=== PATIENT | male | born 1995 | race Two or more races ===

== ENCOUNTER 2025-09-29 19:11 | Observation (INO) ==
--- NOTE | 2025-09-29 19:23 | Emergency Department Note ---
History of Present Illness General Chief complaint: Stroke Alert Stated complaint: stroke symptoms Time Seen by Provider: 09/29/25 19:13 Source: EMS History of Present Illness Provider complaint: Stroke symptoms 30-year-old male presents emergency department for stroke symptoms. Reportedly from EMS at 5:30 PM the patient began having difficulty speaking and weakness in his right arm. Patient reports history of a stroke. EMS states his symptoms have improved since being in the ambulance. Home Medications Medication Instructions Recorded Confirmed Type aspirin 81 mg PO DAILY 09/29/25 09/29/25 History cholecalciferol (vitamin D3) 1 tab PO DAILY 09/29/25 09/29/25 History hydrochlorothiazide 25 mg tablet 25 mg PO DAILY 09/29/25 09/29/25 History lisinopril 20 mg tablet 20 mg PO DAILY 09/29/25 09/29/25 History melatonin 5 mg PO DAILY 09/29/25 09/29/25 History metformin 500 mg tablet,extended 1,000 mg PO HS 09/29/25 09/29/25 History release 24 hr sertraline 50 mg tablet 75 mg PO DAILY 09/29/25 09/29/25 History tirzepatide (weight loss) 5 mg/0.5 5 mg subcut WK 09/29/25 09/29/25 History mL subcutaneous pen injector (Zepbound) vitamin B complex 1 tab PO DAILY 09/29/25 09/29/25 History Allergies Allergy/AdvReac Type Severity Reaction Status Date / Time No Known Allergies Allergy Unverified 09/29/25 20:21 Past Med/Surg History Problem List (Updated 09/29/25 @ 22:24 by Jackson Ch MD) Stroke-like symptoms (Acute) Medical History (Updated 09/29/25 @ 22:24 by Jackson Ch MD) HLD (hyperlipidemia) CVA (cerebral vascular accident) HTN (hypertension) Social History Smoking Status: Never smoker Preferred Language: Slovak Feels Safe at Home: Yes Physical Exam Vital Signs Vital Signs - 24 hr 09/29/25 19:14 09/29/25 19:14 09/29/25 19:23 Temperature 36.8 C Temperature Source Oral Pulse Rate 64 66 Pulse Rate [Apical] 64 Pulse Rhythm Regular Pulse Rhythm [Apical] Regular Pulse Strength Normal Pulse Strength [Apical] Normal Respiratory Rate 18 18 Respiratory Effort / Characteristics Non-Labored Spontaneous Non-Labored Spontaneous Respiratory Depth Normal Normal Respiratory Pattern Regular Regular Blood Pressure 171/86 H Blood Pressure [Right Arm] 171/86 H Blood Pressure Mean 114 Blood Pressure Mean [Right Arm] 114 Blood Pressure Position Semi-fowlers Blood Pressure Position [Right Arm] Semi-fowlers Pulse Oximetry 97 97 Oxygen Delivery Method Room Air Room Air Sepsis Recent Fever Within 48 Hours Yes Sepsis New/Unexplained Change in Mental Status N/A Sepsis Action Taken by Nursing No Action Required 09/29/25 19:28 09/29/25 19:35 09/29/25 19:58 Temperature Temperature Source Pulse Rate Pulse Rate [Apical] 76 74 Pulse Rhythm Pulse Rhythm [Apical] Regular Regular Pulse Strength Pulse Strength [Apical] Normal Normal Respiratory Rate 18 18 Respiratory Effort / Characteristics Non-Labored Spontaneous Non-Labored Spontaneous Respiratory Depth Normal Normal Respiratory Pattern Regular Regular Blood Pressure Blood Pressure [Right Arm] 159/86 H 146/81 H Blood Pressure Mean Blood Pressure Mean [Right Arm] 110 102 Blood Pressure Position Blood Pressure Position [Right Arm] Semi-fowlers Semi-fowlers Pulse Oximetry 96 97 95 Oxygen Delivery Method Room Air Room Air Room Air Sepsis Recent Fever Within 48 Hours Sepsis New/Unexplained Change in Mental Status Sepsis Action Taken by Nursing 09/29/25 20:13 09/29/25 21:00 Temperature Temperature Source Pulse Rate Pulse Rate [Apical] 74 65 Pulse Rhythm Pulse Rhythm [Apical] Regular Regular Pulse Strength Pulse Strength [Apical] Normal Normal Respiratory Rate 18 17 Respiratory Effort / Characteristics Non-Labored Spontaneous Non-Labored Spontaneous Respiratory Depth Normal Normal Respiratory Pattern Regular Regular Blood Pressure Blood Pressure [Right Arm] 139/78 158/80 H Blood Pressure Mean Blood Pressure Mean [Right Arm] 98 106 Blood Pressure Position Blood Pressure Position [Right Arm] Semi-fowlers Lying Pulse Oximetry 96 96 Oxygen Delivery Method Room Air Room Air Sepsis Recent Fever Within 48 Hours Sepsis New/Unexplained Change in Mental Status Sepsis Action Taken by Nursing Physical Exam GENERAL: oriented to person, place, and time. appears well-developed and well- nourished. HENT: Exam performed. - Head: Normocephalic and atraumatic. EYES: Conjunctivae and EOM are normal. Right eye exhibits no discharge. Left eye exhibits no discharge. No scleral icterus. NECK: Normal range of motion. Neck supple. No JVD present. CV: Normal rate, regular rhythm, normal heart sounds and intact distal pulses. There is no peripheral edema. Palpable radial pulses bue. PULM/CHEST: Effort normal and breath sounds normal. No respiratory distress. No stridor. no wheezes. no rales. ABD: The abdomen is soft and morbidly obese. There is no tenderness. NEURO: NIHSS: 2 (9:1, 10:1) SKIN: Skin is warm and dry. He is not diaphoretic. PSYCH: normal mood and affect. Behavior is normal. Judgment and thought content normal. Course Course 1902: Code stroke called from the field. 1912:The patient was evaluated in CT. 1916: CT of the head viewed by me shows no ICH. 1924: On reassessment patient's dysarthria and aphasia seems to have improved. 1930: Radiology called and stated CT of the head and CTA of the head was negative.Spoke with Dr. Kenney Santana teleashanti will evaluate the patient. 1949: Patient was eval by Dr. Kenney Santana teleashanti. He states the patient needs no TNKase but patient needs an MRI. Will admit the patient to the medicine service for MRI and further stroke workup. Administered Medications Discontinued Medications Ioversol (Optiray 320 125ml) 115 ml IV ONCE ONE Stop: 09/29/25 19:23 Last Admin: 09/29/25 19:26 Dose: 115 ml Documented By: DANIKA Medical Decision Making Laboratory Data Attestation: I reviewed the patient's lab results. 09/29/25 19:22 09/29/25 19:22 Lab Results 09/29/25 09/29/25 09/29/25 Range/Units 19:22 19:29 20:40 WBC 5.16 (4.8-10.8) K/ul RBC 4.77 (4.70-6.10) M/uL Hgb 14.3 (14.0-18.0) g/dL Hct 40.5 L (42.0-52.0) % MCV 84.9 (80.0-100.0) fL MCH 30.0 (25.0-34.0) pg MCHC 35.3 (32.0-36.0) g/dL RDW Std Deviation 39.8 (36.4-46.3) fL RDW Coeff of Carla 13.0 (11.5-14.5) % Plt Count 198 (130-400) K/uL MPV 10.1 (9.4-12.4) fL Immature Gran % (Auto) 1.4 % Neut % (Auto) 55.2 % Lymph % (Auto) 30.8 % [place] % (Auto) 9.1 % Eos % (Auto) 3.1 % Baso % (Auto) 0.4 % Neut # (Auto) 2.85 (1.40-6.50) K/uL Lymph # (Auto) 1.59 (1.20-3.40) K/uL [place] # (Auto) 0.47 (0.11-0.59) K/uL Eos # (Auto) 0.16 (0.00-0.50) K/uL Baso # (Auto) 0.02 (0.00-0.20) K/uL Immature Gran # (Auto) 0.07 (0.01-0.20) K/uL PT 11.0 (9.0-12.0) Seconds INR 1.0 (0.9-1.1) APTT 25 (21-31) Seconds PTT Ratio 0.9 Sodium 133 L (136-145) mmol/L Potassium 4.2 (3.5-5.1) mmol/L Chloride 98 (98-107) mmol/L Carbon Dioxide 27 (21-32) mmol/L Anion Gap 8 (3-11) BUN 13 (6-23) mg/dl Creatinine 0.78 (0.6-1.4) mg/dl Est Cr Clr Drug Dosing 234.7 ml/min eGFR 124.57 BUN/Creatinine Ratio 16.7 (10-20) Glucose 118 H (70-99(Fasting)) mg/dl POC Glucose 118 H (70-99) mg/dl Calcium 9.4 (8.6-10.3) mg/dl Magnesium 1.7 (1.7-2.4) mg/dl Total Bilirubin 0.7 (0.2-1.0) mg/dl AST 56 H (13-39) U/L ALT 68 H (7-52) U/L Alkaline Phosphatase 44 (34-104) U/L Troponin I High Sens 4.1 (0-20) pg/ml Total Protein 7.0 (6.0-8.3) gm/dl Albumin 4.1 (3.4-5.0) gm/dl Globulin 2.9 (2.5-4.0) gm/dl Albumin/Globulin Ratio 1.4 (0.9-2) Urine Color Yellow Urine Appearance Clear (Clear) Urine pH 5.0 (4.5-7.5) Ur Specific [place] 1.025 (1.000-1.030) Urine Protein Negative (Negative) Urine Glucose (UA) Negative (Negative) Urine Ketones Negative (Negative) Urine Blood Negative (Negative) Urine Nitrite Negative (Negative) Urine Bilirubin Negative (Negative) Urine Urobilinogen Negative (Negative) Ur Leukocyte Esterase Negative (Negative) Urine Comment Urine Opiates Screen Neg (Neg) Ur Methadone, Qual Neg (Neg) Urine Fentanyl Screen Neg (Neg) Urine Barbiturates Neg (Neg) Ur Phencyclidine (PCP) Neg (Neg) U Amphetamin/Meth Scrn Neg (Neg) MDMA (Ecstasy) Screen Neg (Neg) U Benzodiazepines Scrn Neg (Neg) Ur Cocaine Metabolite Neg (Neg) U Marijuana (THC) Screen Neg (Neg) Blood Type A Positive Antibody Screen NEGATIVE Imaging Data My Impression: CT of the head viewed by me shows no ICH. Radiologist's Impression: Chest X-Ray 09/29/25 19:13 COMPARISON: None FINDINGS: HEART: Mild cardiomegaly. LUNGS: Right CP angle not included in the study. No focal consolidation, pleural effusion, or vascular congestion. MEEDIASTINUM: Unremarkable. BONES: Intact. OTHER: Unremarkable. IMPRESSION: Mild cardiomegaly. Right CP angle not included the study. Electronically signed by Dipak Gonzalez 09-29-2025 7:[address] 09/29/25 19:13 TECHNIQUE: Contiguous axial images were obtained through the brain. Coronal reconstructions were performed from the raw data. Dose reduction according to patient size and/or automated exposure control techniques have been utilized for this exam. FINDINGS: The bony calvarium is intact. There is no hydrocephalus, midline shift, or extra-axial fluid collections. There is no mass effect, hemorrhage, or edema. No significant white matter abnormalities. IMPRESSION: No acute intracranial pathology. Findings personally discussed with the referring provider at 7:31 PM. Electronically signed by Dipak Gonzalez 09-29-2025 7:33 PM Head CTA 09/29/25 19:13 INDICATION: Right arm weakness COMPARISON: None TECHNIQUE: CT Axial images were obtained. CTA was performed through the [place] [facility] [place]. Multiplanar reconstructions were performed. Dose reduction according to patient size and/or automated exposure control techniques have been utilized for this exam. MIP (Maximum Intensity Pixel) images were utilized. This study was analyzed using artificial intelligence software for Large Vessel Occlusive detection. FINDINGS: CT examination of the head demonstrates the ventricles to be normal in size and configuration. There is no acute hemorrhage, hydrocephalus, midline shift, or extra-axial fluid collections. The visualized intracranial arteries are normal in caliber. There is no evidence of significant stenosis or aneurysm formation. There are no vascular malformations. The posterior circulation is unremarkable. IMPRESSION: No large vessel cutoff. Findings personally discussed with the referring provider at 7:31 PM. Electronically signed by Dipak Gonzalez 09-29-2025 7:33 PM Neck CTA 09/29/25 19:13 INDICATION: Right arm weakness COMPARISON: None TECHNIQUE: CT exam of the neck was performed. Multiplanar reconstructions were obtained. Dose reduction according to patient size and/or automated exposure control techniques have been utilized for this exam. MIP (Maximum Intensity Pixel) images were utilized. FINDINGS: The aortic arch is normal in caliber. The origin of the neck vessels are patent. The right common carotid artery is patent. The right internal carotid artery is patent. The right external carotid artery is patent. The left common carotid artery is patent. The left internal carotid artery is patent. The left external carotid artery is patent. The vertebral arteries are patent. No cystic or solid masses. Small bilateral cervical chain lymph nodes, likely reactive. Symmetric appearance of the parotid and submandibular glands. The thyroid gland is normal in size. The lung apices are clear. Cervical spine is intact. Bilateral maxillary and ethmoid sinusitis changes. IMPRESSION: Right carotid system: No significant carotid stenosis Left carotid system: No significant carotid stenosis Patent vertebral arteries. Electronically signed by Dipak Gonzalez 09-29-2025 7:37 PM ECG Data Attestation: I personally reviewed and interpreted this ECG as follows: Rate (beats per minute): 65 Rhythm: + normal sinus ECG Intervals/blocks: + Normal QRS, + Normal DE and + Normal QT-c ECG ST segments: + Normal ST segments [facility] Narrative 1903: Code stroke called from the field. 1913:The patient was evaluated in CT. 1916: CT of the head viewed by me shows no ICH. 1924: On reassessment patient's dysarthria and aphasia seems to have improved. 1930: Radiology called and stated CT of the head and CTA of the head was negative.Spoke with Dr. Kenney Santana telestroke will evaluate the patient. 1949: Patient was eval by Dr. Kenney Santana teleashanti. He states the patient needs no TNKase but patient needs an MRI. Will admit the patient to the medicine service for MRI and further stroke workup. Impression & Plan Stroke-like symptoms Discharge Plan Visit Data Chief Complaint: Stroke Alert Stated Complaint: stroke symptoms ED Provider: Jackson Ch Discharge Problem: Stroke-like symptoms Patient Disposition: Admitted As Inpatient Condition: Fair Discharge Instructions Interventions: ED Discharge Assessment Last Done: 09/29/25 21:53
[2025-09-29] MEDS: OPTIRAY 320 125ml IV ONE (19:26)
[2025-09-29 19:39] LABS: Hematocrit (blood only) 40.5 % (42.0-52.0); Hemoglobin 14.3 g/dL (14.0-18.0); Immature Granulocytes # (auto) 0.07 K/uL (0.01-0.20); Immature Granulocytes % (auto) 1.4 %; Mean Corpuscular Hemoglobin 30.0 pg (25.0-34.0); Mean Corpuscular Volume 84.9 fL (80.0-100.0); Platelet Count 198 K/uL (130-400); RDW Standard Deviation 39.8 fL (36.4-46.3); Red Blood Count 4.77 M/uL (4.70-6.10); White Blood Count 5.16 K/ul (4.8-10.8)
--- NOTE | 2025-09-29 19:39 | CT Scan Report ---
INDICATION: Right arm weakness COMPARISON: None TECHNIQUE: CT exam of the neck was performed. Multiplanar reconstructions were obtained. Dose reduction according to patient size and/or automated exposure control techniques have been utilized for this exam. MIP (Maximum Intensity Pixel) images were utilized. FINDINGS: The aortic arch is normal in caliber. The origin of the neck vessels are patent. The right common carotid artery is patent. The right internal carotid artery is patent. The right external carotid artery is patent. The left common carotid artery is patent. The left internal carotid artery is patent. The left external carotid artery is patent. The vertebral arteries are patent. No cystic or solid masses. Small bilateral cervical chain lymph nodes, likely reactive. Symmetric appearance of the parotid and submandibular glands. The thyroid gland is normal in size. The lung apices are clear. Cervical spine is intact. Bilateral maxillary and ethmoid sinusitis changes. IMPRESSION: Right carotid system: No significant carotid stenosis Left carotid system: No significant carotid stenosis Patent vertebral arteries. Electronically signed by Dipak Gonzalez 09-29-2025 7:37 PM
--- NOTE | 2025-09-29 19:39 | XRay Report ---
COMPARISON: None FINDINGS: HEART: Mild cardiomegaly. LUNGS: Right CP angle not included in the study. No focal consolidation, pleural effusion, or vascular congestion. MEEDIASTINUM: Unremarkable. BONES: Intact. OTHER: Unremarkable. IMPRESSION: Mild cardiomegaly. Right CP angle not included the study. Electronically signed by Dipak Gonzalez 09-29-2025 7:38 PM
--- NOTE | 2025-09-29 19:39 | CT Scan Report ---
TECHNIQUE: Contiguous axial images were obtained through the brain. Coronal reconstructions were performed from the raw data. Dose reduction according to patient size and/or automated exposure control techniques have been utilized for this exam. FINDINGS: The bony calvarium is intact. There is no hydrocephalus, midline shift, or extra-axial fluid collections. There is no mass effect, hemorrhage, or edema. No significant white matter abnormalities. IMPRESSION: No acute intracranial pathology. Findings personally discussed with the referring provider at 7:31 PM. Electronically signed by Dipak Gonzalez 09-29-2025 7:33 PM
--- NOTE | 2025-09-29 19:39 | CT Scan Report ---
INDICATION: Right arm weakness COMPARISON: None TECHNIQUE: CT Axial images were obtained. CTA was performed through the [place] [employer] [place]. Multiplanar reconstructions were performed. Dose reduction according to patient size and/or automated exposure control techniques have been utilized for this exam. MIP (Maximum Intensity Pixel) images were utilized. This study was analyzed using artificial intelligence software for Large Vessel Occlusive detection. FINDINGS: CT examination of the head demonstrates the ventricles to be normal in size and configuration. There is no acute hemorrhage, hydrocephalus, midline shift, or extra-axial fluid collections. The visualized intracranial arteries are normal in caliber. There is no evidence of significant stenosis or aneurysm formation. There are no vascular malformations. The posterior circulation is unremarkable. IMPRESSION: No large vessel cutoff. Findings personally discussed with the referring provider at 7:31 PM. Electronically signed by Dipak Gonzalez 09-29-2025 7:33 PM
[2025-09-29 19:55] LABS: Alanine Aminotransferase 68.0 U/L (7-52); Albumin Globulin Ratio 1.4 (0.9-2); Albumin Level 4.1 gm/dl (3.4-5.0); Alkaline Phosphatase 44.0 U/L (34-104); Anion Gap 8.0 (3-11); Bilirubin,Total 0.7 mg/dl (0.2-1.0); Blood Urea Nitrogen 13.0 mg/dl (6-23); Calcium 9.4 mg/dl (8.6-10.3); Carbon Dioxide 27.0 mmol/L (21-32); Chloride 98.0 mmol/L (98-107); Creatinine Clr Calc Pharmacy 234.7 ml/min; Globulin 2.9 gm/dl (2.5-4.0); Glucose 118.0 mg/dl (70-99(Fasting)); Magnesium 1.7 mg/dl (1.7-2.4); Potassium 4.2 mmol/L (3.5-5.1); Sodium 133.0 mmol/L (136-145); Total Protein 7.0 gm/dl (6.0-8.3)
[2025-09-29 20:25] LABS: INR 1.0 (0.9-1.1); Partial Thromboplastin Time 25 Seconds (21-31); Prothrombin Time 11.0 Seconds (9.0-12.0)
[2025-09-29 20:57] LABS: Appearance Urine Clear (Clear); Glucose Urine UA Negative (Negative)
--- NOTE | 2025-09-29 21:35 | History & Physical Report ---
Date of Service September 29, 2025 Assessment & Plan (1) Stroke-like symptoms: Plan: 30-year-old male with past medical history significant for hypertension, diabetes, depression, morbid obesity, obstructive sleep apnea presents for strokelike symptoms. Around 5:30 PM today patient noticed slurred speech and also weakness in the right side and EMS was called. Symptoms lasted about 1 hour. Patient was stroke alert. Currently patient is mostly back to normal. Patient says he had similar kind of symptoms 4 years ago and at that time workup was negative and was told it was stress related. Patient is having ongoing stress for last 1 month. Currently denies any headache. Earlier had blurred vision. Currently vision is okay. No earaches currently. No runny nose or sore throat. No cough. No difficulty swallowing. Denies any chest pain or shortness of breath. No nausea. No abdominal pain. Normal bowel and bladder movements. Resting comfortably and hemodynamics are okay currently. Strokelike symptoms Transient dysarthria and right sided weakness Currently still has some decreased sensation in the right side CT head, CTA head and neck unremarkable Will do full stroke workup with MRI, echo Will check HbA1c and lipid profile Neurochecks PT OT Telemetry Neurology consult for further recommendations Continue home aspirin Hypertension Continue home lisinopril hydrochlorothiazide Will monitor Diabetes Hold home medications Sliding scale Will monitor Depression On Zoloft Morbid obesity Counseling Obstructive sleep apnea CPAP nightly DVT prophylaxis SCDs Disposition Telemetry Full code. History of Present Illness Chief Complaint: Strokelike symptoms Primary Care Provider: NO PCP 30-year-old male with past medical history significant for hypertension, diabetes, depression, morbid obesity, obstructive sleep apnea presents for strokelike symptoms. Around 5:30 PM today patient noticed slurred speech and also weakness in the right side and EMS was called. Symptoms lasted about 1 hour. Patient was stroke alert. Currently patient is mostly back to normal. Patient says he had similar kind of symptoms 4 years ago and at that time workup was negative and was told it was stress related. Patient is having ongoing stress for last 1 month. Currently denies any headache. Earlier had blurred vision. Currently vision is okay. No earaches currently. No runny nose or sore throat. No cough. No difficulty swallowing. Denies any chest pain or shortness of breath. No nausea. No abdominal pain. Normal bowel and bladder movements. Resting comfortably and hemodynamics are okay currently. Past medical history. As mentioned above. Past surgical history. Left knee surgery. Social history. Denies smoking. Denies alcohol use. Denies drug use. Family history. Significant for diabetes. Brother has heart problems. Allergies Allergy/AdvReac Type Severity Reaction Status Date / Time No Known Allergies Allergy Unverified 09/29/25 20:21 Home Medications Medication Instructions Recorded Confirmed Type aspirin 81 mg PO DAILY 09/29/25 09/29/25 History cholecalciferol (vitamin D3) 1 tab PO DAILY 09/29/25 09/29/25 History hydrochlorothiazide 25 mg tablet 25 mg PO DAILY 09/29/25 09/29/25 History lisinopril 20 mg tablet 20 mg PO DAILY 09/29/25 09/29/25 History melatonin 5 mg PO DAILY 09/29/25 09/29/25 History metformin 500 mg tablet,extended 1,000 mg PO HS 09/29/25 09/29/25 History release 24 hr sertraline 50 mg tablet 75 mg PO DAILY 09/29/25 09/29/25 History tirzepatide (weight loss) 5 mg/0.5 5 mg subcut WK 09/29/25 09/29/25 History mL subcutaneous pen injector (Zepbound) vitamin B complex 1 tab PO DAILY 09/29/25 09/29/25 History Past Med/Surg History Problem List (Updated 09/29/25 @ 22:24 by Jackson Ch MD) Stroke-like symptoms (Acute) Medical History (Updated 09/29/25 @ 22:24 by Jackson Ch MD) HLD (hyperlipidemia) CVA (cerebral vascular accident) HTN (hypertension) Social History Smoking Status: Never smoker Hx Alcohol Use: No Hx Substance Use: No Preferred Language: Portuguese Communication Ability: Effective Principal Consultant Required: No Beliefs That Will Affect Care: None Current Living Situation: Other Current Living Situation Comment: room mate, Neymar Other Information That Helps Us Care for You: No Feels Safe at Home: Yes Safety Concerns: Feels Safe At This Time Assistive Devices: CPAP and Glasses Review of Systems Review of Systems: All systems reviewed & are unremarkable except as noted in HPI & below Physical Exam Physical Exam: General- Not in distress Head- atraumatic Eyes- EOMI. ENT- oropharynx clear Neck- supple, no JVD. Lungs- clear to auscultation no wheezing or crackles Heart- regular rate and rhythm; no murmur, no gallop. Abdomen- normal bowel sounds, soft, nontender, no distension Extremities- no pretibial edema, no erythema seen Neuro- alert, oriented EOMI; no facial palsy; no dysarthria; motor 5/5 bilaterally; no pronator drift, coordination of movements normal, mild decreased sensations on right side, position sense intact Results & Data Results & Data Vital Signs (Past 12 Hours) Vital Signs Temp Pulse Pulse Resp BP BP Pulse Ox 09/29/25 21:00 65 17 158/80 H 96 09/29/25 20:13 74 18 139/78 96 09/29/25 19:58 74 18 146/81 H 95 09/29/25 19:35 97 09/29/25 19:28 76 18 159/86 H 96 09/29/25 19:23 66 09/29/25 19:14 36.8 C 64 18 171/86 H 97 09/29/25 19:14 64 18 171/86 H 97 O2 Del Method 09/29/25 21:00 Room Air 09/29/25 20:13 Room Air 09/29/25 19:58 Room Air 09/29/25 19:35 Room Air 09/29/25 19:28 Room Air 09/29/25 19:23 09/29/25 19:14 Room Air 09/29/25 19:14 Room Air Diagnostic Findings Laboratory Results WBC 5.16 K/ul (4.8-10.8) 09/29/25 19:22 RBC 4.77 M/uL (4.70-6.10) 09/29/25 19:22 Hgb 14.3 g/dL (14.0-18.0) 09/29/25 19:22 Hct 40.5 % (42.0-52.0) L 09/29/25 19:22 MCV 84.9 fL (80.0-100.0) 09/29/25 19:22 MCH 30.0 pg (25.0-34.0) 09/29/25 19:22 MCHC 35.3 g/dL (32.0-36.0) 09/29/25 19:22 RDW Std Deviation 39.8 fL (36.4-46.3) 09/29/25 19:22 RDW Coeff of Carla 13.0 % (11.5-14.5) 09/29/25 19: Plt Count 198 K/uL (130-400) 09/29/25 19: MPV 10.1 fL (9.4-12.4) 09/29/25 19: Immature Gran % (Auto) 1.4 % 09/29/25: Neut % (Auto) 55.2 % 09/29/25: Lymph % (Auto) 30.8 % 09/29/25 19: [place] % (Auto) 9.1 % 09/29/25: Eos % (Auto) 3.1 % 09/29/25: Baso % (Auto) 0.4 % 09/29/25: Neut # (Auto) 2.85 K/uL (1.40-6.50) 09/29/25 19: Lymph # (Auto) 1.59 K/uL (1.20-3.40) 09/29/25 19: Stanton # (Auto) 0.47 K/uL (0.11-0.59) 09/29/25 19: Eos # (Auto) 0.16 K/uL (0.00-0.50) 09/29/25 19: Baso # (Auto) 0.02 K/uL (0.00-0.20) 09/29/25 19: Immature Gran # (Auto) 0.07 K/uL (0.01-0.20) 09/29/25 19: PT 11.0 Seconds (9.0-12.0) 09/29/25 19: INR 1.0 (0.9-1.1) 09/29/25 19: APTT 25 Seconds (21-31) 09/29/25 19: PTT Ratio 0.9 09/29/25 19:22 Sodium 133 mmol/L (136-145) L 09/29/25 19:22 Potassium 4.2 mmol/L (3.5-5.1) 09/29/25 19: Chloride 98 mmol/L (98-107) 09/29/25 19: Carbon Dioxide 27 mmol/L (21-32) 09/29/25 19:22 Anion Gap 8 (3-11) 09/29/25 19: BUN 13 mg/dl (6-23) 09/29/25 19: Creatinine 0.78 mg/dl (0.6-1.4) 09/29/25 19: Est Cr Clr Drug Dosing 234.7 ml/min 09/29/25 19:22 eGFR 124.57 09/29/25 19: BUN/Creatinine Ratio 16.7 (10-20) 09/29/25 19: Glucose 118 mg/dl (70-99(Fasting)) H 09/29/25 19: POC Glucose 118 mg/dl (70-99) H 09/29/25 19:29 Calcium 9.4 mg/dl (8.6-10.3) 09/29/25: Magnesium 1.7 mg/dl (1.7-2.4) 09/29/25: Total Bilirubin 0.7 mg/dl (0.2-1.0) 09/29/25 19: AST 56 U/L (13-39) H 09/29/25 19:22 ALT 68 U/L (7-52) H 09/29/25 19: Alkaline Phosphatase 44 U/L (34-104) 09/29/25 19: Troponin I High Sens 4.1 pg/ml (0-20) 09/29/25 19: Total Protein 7.0 gm/dl (6.0-8.3) 09/29/25 19: Albumin 4.1 gm/dl (3.4-5.0) 09/29/25: Globulin 2.9 gm/dl (2.5-4.0) 09/29/25 19: Albumin/Globulin Ratio 1.4 (0.9-2) 09/29/25 19: Urine Color Yellow 09/29/25:40 Urine Appearance Clear (Clear) 09/29/25: Urine pH 5.0 (4.5-7.5) 09/29/25 20:40 Ur Specific [place] 1.025 (1.000-1.030) 09/29/25 20:40 Urine Protein Negative (Negative) 09/29/25:40 Urine Glucose (UA) Negative (Negative) 12/20/25 20:40 Urine Ketones Negative (Negative) 09/29/25 20:40 Urine Blood Negative (Negative) 09/29/25 20:40 Urine Nitrite Negative (Negative) 09/29/25 20:40 Urine Bilirubin Negative (Negative) 09/29/25 20:40 Urine Urobilinogen Negative (Negative) 09/29/25 20:40 Ur Leukocyte Esterase Negative (Negative) 09/29/25 20:40 Urine Comment 09/29/25 20:40 Blood Type A Positive 09/29/25: Antibody Screen NEGATIVE 09/29/25 19:22 Impressions Chest X-Ray 09/29/25 19:13 COMPARISON: None FINDINGS: HEART: Mild cardiomegaly. LUNGS: Right CP angle not included in the study. No focal consolidation, pleural effusion, or vascular congestion. MEEDIASTINUM: Unremarkable. BONES: Intact. OTHER: Unremarkable. IMPRESSION: Mild cardiomegaly. Right CP angle not included the study. Electronically signed by Dipak Gonzalez 09-29-2025 7:[address] 09/29/25 19:13 TECHNIQUE: Contiguous axial images were obtained through the brain. Coronal reconstructions were performed from the raw data. Dose reduction according to patient size and/or automated exposure control techniques have been utilized for this exam. FINDINGS: The bony calvarium is intact. There is no hydrocephalus, midline shift, or extra-axial fluid collections. There is no mass effect, hemorrhage, or edema. No significant white matter abnormalities. IMPRESSION: No acute intracranial pathology. Findings personally discussed with the referring provider at 7:31 PM. Electronically signed by Dipak Gonzalez 09-29-2025 7:33 PM Head CTA 09/29/25 19:13 INDICATION: Right arm weakness COMPARISON: None TECHNIQUE: CT Axial images were obtained. CTA was performed through the [facility] [place]. Multiplanar reconstructions were performed. Dose reduction according to patient size and/or automated exposure control techniques have been utilized for this exam. MIP (Maximum Intensity Pixel) images were utilized. This study was analyzed using artificial intelligence software for Large Vessel Occlusive detection. FINDINGS: CT examination of the head demonstrates the ventricles to be normal in size and configuration. There is no acute hemorrhage, hydrocephalus, midline shift, or extra-axial fluid collections. The visualized intracranial arteries are normal in caliber. There is no evidence of significant stenosis or aneurysm formation. There are no vascular malformations. The posterior circulation is unremarkable. IMPRESSION: No large vessel cutoff. Findings personally discussed with the referring provider at 7:31 PM. Electronically signed by Dipak Gonzalez 09-29-2025 7:33 PM Neck CTA 09/29/25 19:13 INDICATION: Right arm weakness COMPARISON: None TECHNIQUE: CT exam of the neck was performed. Multiplanar reconstructions were obtained. Dose reduction according to patient size and/or automated exposure control techniques have been utilized for this exam. MIP (Maximum Intensity Pixel) images were utilized. FINDINGS: The aortic arch is normal in caliber. The origin of the neck vessels are patent. The right common carotid artery is patent. The right internal carotid artery is patent. The right external carotid artery is patent. The left common carotid artery is patent. The left internal carotid artery is patent. The left external carotid artery is patent. The vertebral arteries are patent. No cystic or solid masses. Small bilateral cervical chain lymph nodes, likely reactive. Symmetric appearance of the parotid and submandibular glands. The thyroid gland is normal in size. The lung apices are clear. Cervical spine is intact. Bilateral maxillary and ethmoid sinusitis changes. IMPRESSION: Right carotid system: No significant carotid stenosis Left carotid system: No significant carotid stenosis Patent vertebral arteries. Electronically signed by Dipak Gonzalez 09-29-2025 7:37 PM ECG Additional Comments: ECG. Normal sinus rhythm rate of 65. No acute ST changes seen. Code Status & VTE Plan VTE Prophylaxis Plan VTE Prophylaxis will be ordered: Yes
[2025-09-29 21:48] LABS: Amphetamines+Metham, Urine Neg (Neg); MDMA (Ecstacy), Urine Neg (Neg); Marijuana, Urine Neg (Neg)
[2025-09-29] MEDS ORDERED: ACETAMINOPHEN 325 MG TAB PO PRN (22:15)
[2025-09-29] MEDS ORDERED: GLUCOSE 10 TAB/TUBE PO PRN (22:15)
[2025-09-29] MEDS ORDERED: DEXTROSE 50% 50 ML SYRINGE IV PRN (22:15)
[2025-09-29] MEDS ORDERED: GLUCOSE 40% GEL 15 GM TUBE PO PRN (22:15)
[2025-09-29] MEDS ORDERED: CARBOHYDRATES FOR HYPOGLYCEMIA PO PRN (22:15)
[2025-09-29] MEDS ORDERED: NITROGLYCERIN SL 0.4 MG/TAB TAB SL PRN (22:15)
[2025-09-29] MEDS ORDERED: PHARMACIST DISCHARGE MED REC CONSULT PRN (22:15)
[2025-09-29] MEDS ORDERED: POLYETHYLENE (MIRALAX) 17 GM PACK PO PRN (22:15)
[2025-09-29] MEDS ORDERED: GLUCAGON FOR INJ 1 MG VIAL SQ PRN (22:15)
[2025-09-29] MEDS: SODIUM CHLORIDE 0.9% 1,000 ML IV SCH (22:47)
[2025-09-30] MEDS ORDERED: INSULIN ASPART PER UNIT CHARGE SC SCH
[2025-09-30 06:08] LABS: Hematocrit (blood only) 39.1 % (42.0-52.0); Hemoglobin 14.0 g/dL (14.0-18.0); Immature Granulocytes # (auto) 0.05 K/uL (0.01-0.20); Immature Granulocytes % (auto) 0.8 %; Mean Corpuscular Hemoglobin 30.6 pg (25.0-34.0); Mean Corpuscular Volume 85.4 fL (80.0-100.0); Platelet Count 221 K/uL (130-400); RDW Standard Deviation 39.3 fL (36.4-46.3); Red Blood Count 4.58 M/uL (4.70-6.10); White Blood Count 6.61 K/ul (4.8-10.8)
[2025-09-30 06:22] LABS: Anion Gap 10.0 (3-11); Blood Urea Nitrogen 12.0 mg/dl (6-23); Calcium 9.8 mg/dl (8.6-10.3); Carbon Dioxide 26.0 mmol/L (21-32); Chloride 100.0 mmol/L (98-107); Cholesterol 167.0 mg/dl (0-200); Creatinine Clr Calc Pharmacy 247.0 ml/min; Glucose 123.0 mg/dl (70-99(Fasting)); HDL Cholesterol 21.0 mg/dl; Magnesium 1.8 mg/dl (1.7-2.4); Potassium 3.7 mmol/L (3.5-5.1); Sodium 136.0 mmol/L (136-145); Triglycerides 325.0 mg/dl (0-150)
[2025-09-30 07:39] LABS: Hemoglobin A1C 5.8 % (4.5-5.6)
[2025-09-30] MEDS: VITAMIN B COMPLEX TAB PO SCH (08:09)
[2025-09-30] MEDS: ASPIRIN 81 MG ECTAB PO SCH (08:09)
[2025-09-30] MEDS: hydroCHLOROthiazide 25 MG TAB PO SCH (08:09)
[2025-09-30] MEDS: SERTRALINE HCL 50 MG TABLET PO SCH (08:09)
[2025-09-30] MEDS: CHOLECALCIFEROL 25 MCG (1000 UNITS) TAB PO SCH (08:10)
[2025-09-30] MEDS: INSULIN ASPART PER UNIT CHARGE SC SCH (08:49)
--- NOTE | 2025-09-30 09:44 | Electrocardiogram Report ---
Test Reason : Blood Pressure : */* mmHG Vent. Rate : 65 BPM Atrial Rate : 65 BPM P-R Int : 150 ms QRS Dur : 94 ms QT Int : 362 ms P-R-T Axes : 34 70 60 degrees QTcB Int : 376 ms Normal sinus rhythm Normal ECG No previous ECGs available Confirmed by Jorge Hall ([id number]) on 09/30/2025 9:44:02 AM Referred By: REFERRED SELF Confirmed By: Jorge Hall
--- NOTE | 2025-09-30 10:20 | Neurology Consultation ---
Date of Consultation September 30, 2025 Assessment & Plan (1) Stroke-like symptoms: Recommend admission for continued stroke work up to include the following: MRI brain without contrast Echocardiogram as part of complete stroke workup Continue frequent neurological assessments Obtain stat CT brain without contrast for any acute neurological decline Continue to monitor/control blood pressure & blood glucose Continue to monitor telemetry closely Recommend ZioPatch at DC if no evidence of arrhythmia during inpatient monitoring Continue to monitor renal and hepatic function, keep euvolemic Metabolic workup should include hgbA1c, fasting lipids Recommend obtain hypercoagulable workup this admit Recommend DAPT for at least 3 weeks Recommend high dose statin therapy indefinitely if tolerated Ok from neurology perspective for VTE prophylaxis PT/OT/SLT to eval and treat Continue CPAP at times of sleep Plan for follow up neurology 4-6 weeks Telehealth Consultation Telehealth Information Telehealth Information: I performed this visit using a real-time telehealth connection between my location and the patients originating location ([facility]). After connecting through interactive tele-video, patient was identified by name and date of and/or wristband check.Patient (or authorized healthcare outside sales representative) was informed that this was a telemedicine visit and it was being conducted confidentially over secure lines. My office door was closed and no one else was present in the room with me.Patient (or authorized healthcare outside sales representative) provided consent to proceed with the visit, expressed an understanding of privacy and security of the telemedicine visit, and gave permission to have a hospital outside sales representative in the room in order to assist with the visit and to conduct portions of the visit, as needed. I informed the patient (or authorized healthcare outside sales representative) that I reviewed their record and presented the opportunity for them to ask any questions regarding the visit today. The patient agreed to participate. History of Present Illness Reason for Consultation: Stroke like symptoms Attending Physician: Forrest Saucedo MD History of Present Illness 30yo male with documented past medical hx of morbid obesity, MARGIE, HTN, DM presented to [facility] as stroke alert last evening undergoing emergent stroke imaging including CT brain without contrast, personally reviewed today, reveal ing no overt evidence of hemorrhage. CT angiographic studies of head and neck, also personally reviewed today, reveal no overt evidence of large vessel occlusion or significant/flow limiting stenosis. Per documentation review, he arrived with report of one hour of right hemiparesis/hemiparesthesia and dysarthria. Fortunately symptoms resolved. Reportedly had similar short lasting symptoms in the past approx 4 years ago, noting patient 30yo now, and was diagnosed with TIA. No reported falls or trauma. No reported cephalgia or cervicalgia. Denies chest pain/palpitations or shortness of breath. No reported changes in vision currently but reports blurred vision last evening at time of event. Denies changes in hearing dizziness syncope seizure like activity. Denies recent fevers chills nausea vomiting changes in bowels or bladder. Denies recent medication changes, recent illness or sick contacts, no reported recent travel. It is reported he has been under ongoing stress for weeks to months. He reports symptoms lasting 1-2 hours and have remained resolved/no further recurrence. I have performed televideo consultation. He is alert & oriented; able to answer all questions appropriately, name objects on televideo monitor, repeat phrases and perform complex/embedded commands without deficit. Neurological exam is non lateralizing/nonfocal in terms of motor strength and coordination. Allergies Allergy/AdvReac Type Severity Reaction Status Date / Time No Known Allergies Allergy Unverified 09/29/25 20:21 Home Medications Medication Instructions Recorded Confirmed Type aspirin 81 mg PO DAILY 09/29/25 09/29/25 History cholecalciferol (vitamin D3) 1 tab PO DAILY 09/29/25 09/29/25 History hydrochlorothiazide 25 mg tablet 25 mg PO DAILY 09/29/25 09/29/25 History lisinopril 20 mg tablet 20 mg PO DAILY 09/29/25 09/29/25 History melatonin 5 mg PO DAILY 09/29/25 09/29/25 History metformin 500 mg tablet,extended 1,000 mg PO HS 09/29/25 09/29/25 History release 24 hr sertraline 50 mg tablet 75 mg PO DAILY 09/29/25 09/29/25 History tirzepatide (weight loss) 5 mg/0.5 5 mg subcut WK 09/29/25 09/29/25 History mL subcutaneous pen injector (Zepbound) vitamin B complex 1 tab PO DAILY 09/29/25 09/29/25 History Patient History Medical History (Updated 09/29/25 @ 22:24 by Jackson Ch MD) HLD (hyperlipidemia) CVA (cerebral vascular accident) HTN (hypertension) Social History Smoking Status: Never smoker Hx Alcohol Use: No Hx Substance Use: No Preferred Language: Mohawk Communication Ability: Effective Lead Ramp Agent Required: No Beliefs That Will Affect Care: None Current Living Situation: Other Current Living Situation Comment: room mate, Neymar Other Information That Helps Us Care for You: No Feels Safe at Home: Yes Safety Concerns: Feels Safe At This Time Assistive Devices: CPAP and Glasses Physical Exam Neurological Examination: Mental Status: Awake and alert. Oriented to person, place, and time. Fluency naming repetition and comprehension appear grossly intact. Affect remains appropriate. CN testing: I: Deferred II: Reports no changes in visual acuity III/IV/: No evidence of gaze preference, hippus, nystagmus or roving eye movements V: Facial sensation reportedly grossly intact to light touch bilaterally VII: Facial movements appear without evidence of asymmetry VIII: Hearing appears grossly intact to loud voice bilaterally IX/X: Palate is unable to be accurately visualized XI: Shoulder shrug appears symmetric/ grossly intact bilaterally XII: Tongue protrudes midline without evidence of biting Motor exam: Strength appears grossly intact in all extremities Tone: Unable to accurately assess via telemedicine Sensory: Sensation is reportedly grossly intact throughout Coordination: No apparent evidence of dysmetria or dysdiadochokinesia Reflexes: Unable to accurately assess via telemedicine Gait: Deferred Results & Data Vital Signs (Past 12 Hours) Vital Signs Temp Pulse Pulse Resp BP Pulse Ox O2 Del Method 09/30/25 09:25 73 09/30/25 08:00 Room Air 09/30/25 07:33 36.4 C L 67 19 159/76 H 95 Room Air 09/30/25 04:19 36.5 C 69 18 145/78 H 95 Room Air 09/30/25 01:14 66 17 96 09/30/25 00:03 36.4 C L 64 18 135/74 97 Room Air 09/29/25 22:20 Room Air Laboratory Results Abnormal lab results 09/29/25 09/29/25 09/30/25 Range/Units 19:22 19:29 05:50 RBC 4.58 L (4.70-6.10) M/uL Hct 40.5 L 39.1 L (42.0-52.0) % Sodium 133 L (136-145) mmol/L Glucose 118 H 123 H (70-99(Fasting)) mg/dl POC Glucose 118 H (70-99) mg/dl Hemoglobin A1c 5.8 H (4.5-5.6) % AST 56 H (13-39) U/L ALT 68 H (7-52) U/L Triglycerides 325 H (0-150) mg/dl VLDL Cholesterol, Calc 65 H (0-30) mg/dl Cholesterol/HDL Ratio 8.0 H (0-5) 09/30/25 Range/Units 07:56 RBC (4.70-6.10) M/uL Hct (42.0-52.0) % Sodium (136-145) mmol/L Glucose (70-99(Fasting)) mg/dl POC Glucose 103 H (70-99) mg/dl Hemoglobin A1c (4.5-5.6) % AST (13-39) U/L ALT (7-52) U/L Triglycerides (0-150) mg/dl VLDL Cholesterol, Calc (0-30) mg/dl Cholesterol/HDL Ratio (0-5) Diagnostic Findings Chest X-Ray 09/29/25 19:13 COMPARISON: None FINDINGS: HEART: Mild cardiomegaly. LUNGS: Right CP angle not included in the study. No focal consolidation, pleural effusion, or vascular congestion. MEEDIASTINUM: Unremarkable. BONES: Intact. OTHER: Unremarkable. IMPRESSION: Mild cardiomegaly. Right CP angle not included the study. Electronically signed by Dipak Gonzalez 09-29-2025 7:[address] 09/29/25 19:13 TECHNIQUE: Contiguous axial images were obtained through the brain. Coronal reconstructions were performed from the raw data. Dose reduction according to patient size and/or automated exposure control techniques have been utilized for this exam. FINDINGS: The bony calvarium is intact. There is no hydrocephalus, midline shift, or extra-axial fluid collections. There is no mass effect, hemorrhage, or edema. No significant white matter abnormalities. IMPRESSION: No acute intracranial pathology. Findings personally discussed with the referring provider at 7:31 PM. Electronically signed by Dipak Gonzalez 09-29-2025 7:33 PM Head CTA 09/29/25 19:13 INDICATION: Right arm weakness COMPARISON: None TECHNIQUE: CT Axial images were obtained. CTA was performed through the [place] [facility]. Multiplanar reconstructions were performed. Dose reduction according to patient size and/or automated exposure control techniques have been utilized for this exam. MIP (Maximum Intensity Pixel) images were utilized. This study was analyzed using artificial intelligence software for Large Vessel Occlusive detection. FINDINGS: CT examination of the head demonstrates the ventricles to be normal in size and configuration. There is no acute hemorrhage, hydrocephalus, midline shift, or extra-axial fluid collections. The visualized intracranial arteries are normal in caliber. There is no evidence of significant stenosis or aneurysm formation. There are no vascular malformations. The posterior circulation is unremarkable. IMPRESSION: No large vessel cutoff. Findings personally discussed with the referring provider at 7:31 PM. Electronically signed by Dipak Gonzalez 09-29-2025 7:33 PM Neck CTA 09/29/25 19:13 INDICATION: Right arm weakness COMPARISON: None TECHNIQUE: CT exam of the neck was performed. Multiplanar reconstructions were obtained. Dose reduction according to patient size and/or automated exposure control techniques have been utilized for this exam. MIP (Maximum Intensity Pixel) images were utilized. FINDINGS: The aortic arch is normal in caliber. The origin of the neck vessels are patent. The right common carotid artery is patent. The right internal carotid artery is patent. The right external carotid artery is patent. The left common carotid artery is patent. The left internal carotid artery is patent. The left external carotid artery is patent. The vertebral arteries are patent. No cystic or solid masses. Small bilateral cervical chain lymph nodes, likely reactive. Symmetric appearance of the parotid and submandibular glands. The thyroid gland is normal in size. The lung apices are clear. Cervical spine is intact. Bilateral maxillary and ethmoid sinusitis changes. IMPRESSION: Right carotid system: No significant carotid stenosis Left carotid system: No significant carotid stenosis Patent vertebral arteries. Electronically signed by Dipak Gonzalez 09-29-2025 7:37 PM Medications Administered Home Medications Medication Instructions Recorded Confirmed Last Taken aspirin 81 mg PO DAILY 09/29/25 09/29/25 Unknown cholecalciferol (vitamin D3) 1 tab PO DAILY 09/29/25 09/29/25 Unknown hydrochlorothiazide 25 mg tablet 25 mg PO DAILY 09/29/25 09/29/25 Unknown lisinopril 20 mg tablet 20 mg PO DAILY 09/29/25 09/29/25 Unknown melatonin 5 mg PO DAILY 09/29/25 09/29/25 Unknown metformin 500 mg tablet,extended 1,000 mg PO HS 09/29/25 09/29/25 Unknown release 24 hr sertraline 50 mg tablet 75 mg PO DAILY 09/29/25 09/29/25 Unknown tirzepatide (weight loss) 5 mg/0.5 5 mg subcut WK 09/29/25 09/29/25 Unknown mL subcutaneous pen injector (Zepbound) vitamin B complex 1 tab PO DAILY 09/29/25 09/29/25 Unknown Active Medications Generic Name Dose Route Start Last Admin Trade Name Adolph PRN Reason Stop Dose Admin Aspirin 81 mg 09/30/25 09:00 09/30/25 08:09 Aspirin 81 Mg Ectab PO 10/30/25 08:59 81 mg DAILY TIARA Administration Hydrochlorothiazide 25 mg 09/30/25 09:00 09/30/25 08:09 Hydrochlorothiazide 25 Mg Tab PO 10/30/25 08:59 25 mg DAILY TIARA Administration Sodium Chloride 1,000 mls @ 80 mls/hr 09/29/25 22:15 09/29/25 22:47 Nss IV 09/30/25 10:44 80 mls/hr .[id number] TIARA Administration Insulin Aspart 0 units 09/30/25 07:30 09/30/25 08:49 Insulin Aspart Per Unit Charge SC 10/30/25 07:29 2 units ACHS TIARA Administration Lisinopril 20 mg 09/30/25 09:00 09/30/25 08:10 Lisinopril 20 Mg Tab PO 10/30/25 08:59 20 mg DAILY TIARA Administration Sertraline HCl 75 mg 09/30/25 09:00 09/30/25 08:09 Sertraline Hcl 50 Mg Tablet PO 10/30/25 08:59 75 mg DAILY TIARA Administration Vitamin B Complex 1 tab 09/30/25 09:00 09/30/25 08:09 Vitamin B Complex Tab PO 10/30/25 08:59 1 tab DAILY TIARA Administration Vitamin D 25 mcg 09/30/25 09:00 09/30/25 08:10 Cholecalciferol 25 Mcg (1000 Units) Tab PO 10/30/25 08:59 25 mcg DAILY TIARA Administration
[2025-09-30] MEDS: GADOBUTROL 30ML VIAL IV ONE (11:02)
[2025-09-30 11:58] VITALS: RESP 18
--- NOTE | 2025-09-30 12:02 | Magnetic Resonance Report ---
Technique: Multiple T1 and T2-weighted magnetic resonance images were obtained of the brain both before and after the administration of intravenous gadolinium contrast Findings: There is no sign of acute or old infarction with normal-appearing diffusion weighted images. No definite focus of demyelination is seen. No mass lesion or other area of abnormal enhancement is identified. There is no intracranial hemorrhage or other fluid collection. No midline shift or other form of herniation is seen. There is no hydrocephalus. The pituitary gland appears normal. Normal flow-voids are seen within the arteries of the [id number]. The orbits appear unremarkable. There is mucosal thickening and small mucous retention cyst formation in the maxillary, ethmoid, and sphenoid sinuses. The mastoid air cells appear clear Impression: 1. Normal-appearing brain 2. Chronic sinusitis Electronically signed by Cash Reilly 09-30-2025 12:01 PM
--- NOTE | 2025-09-30 14:30 | XCELERA ---
[id number] \\[id number]
[2025-09-30 15:43] VITALS: BP 136/80; PULSE 87; TEMP 97.5; O2SAT 99
--- NOTE | 2025-09-30 15:51 | Discharge Summary ---
Date of Service September 30, 2025 Admission HPI Per Admitting Provider 30-year-old male with past medical history significant for hypertension, diabetes, depression, morbid obesity, obstructive sleep apnea presents for strokelike symptoms. Around 5:30 PM today patient noticed slurred speech and also weakness in the right side and EMS was called. Symptoms lasted about 1 hour. Patient was stroke alert. Currently patient is mostly back to normal. Patient says he had similar kind of symptoms 4 years ago and at that time workup was negative and was told it was stress related. Patient is having ongoing stress for last 1 month. Currently denies any headache. Earlier had blurred vision. Currently vision is okay. No earaches currently. No runny nose or sore throat. No cough. No difficulty swallowing. Denies any chest pain or shortness of breath. No nausea. No abdominal pain. Normal bowel and bladder movements. Resting comfortably and hemodynamics are okay currently. Past medical history. As mentioned above. Past surgical history. Left knee surgery. Social history. Denies smoking. Denies alcohol use. Denies drug use. Family history. Significant for diabetes. Brother has heart problems. Admission Exam Per Admitting Provider General- Not in distress Head- atraumatic Eyes- EOMI. ENT- oropharynx clear Neck- supple, no JVD. Lungs- clear to auscultation no wheezing or crackles Heart- regular rate and rhythm; no murmur, no gallop. Abdomen- normal bowel sounds, soft, nontender, no distension Extremities- no pretibial edema, no erythema seen Neuro- alert, oriented EOMI; no facial palsy; no dysarthria; motor 5/5 bilaterally; no pronator drift, coordination of movements normal, mild decreased sensations on right side, position sense intact Principal Diagnosis Stroke-like symptoms Discharge Exam General- morbidly obese young adult M in NAD Head- atraumatic Eyes- EOMI. Neck- supple, thick Lungs- clear to auscultation no wheezing or crackles Heart- regular rate and rhythm; no murmur Abdomen- normal bowel sounds, soft, nontender, no distension Extremities- no pretibial edema, no erythema seen, moves extremities Neuro- alert, oriented EOMI; no facial palsy; no dysarthria; motor 5/5 bilaterally; coordination of movements normal Discharge Data Allergies Allergy/AdvReac Type Severity Reaction Status Date / Time No Known Allergies Allergy Unverified 09/29/25 20:21 Consultations 09/29/25 20:07 ED Decision to Admit Stat 09/30/25 08:00 Consult Neurology Routine Ordered Studies 09/29/25 MR brain wo/w con Urgent Findings: There is no sign of acute or old infarction with normal-appearing diffusion weighted images. No definite focus of demyelination is seen. No mass lesion or other area of abnormal enhancement is identified. There is no intracranial hemorrhage or other fluid collection. No midline shift or other form of herniation is seen. There is no hydrocephalus. The pituitary gland appears normal. Normal flow-voids are seen within the arteries of the [id number]. The orbits appear unremarkable. There is mucosal thickening and small mucous retention cyst formation in the maxillary, ethmoid, and sphenoid sinuses. The mastoid air cells appear clear Impression: 1. Normal-appearing brain 2. Chronic sinusitis 09/29/25 19:13 CT angio head w con Stat FINDINGS: CT examination of the head demonstrates the ventricles to be normal in size and configuration. There is no acute hemorrhage, hydrocephalus, midline shift, or extra-axial fluid collections. The visualized intracranial arteries are normal in caliber. There is no evidence of significant stenosis or aneurysm formation. There are no vascular malformations. The posterior circulation is unremarkable. IMPRESSION: No large vessel cutoff. CT angio neck with con Stat FINDINGS: The aortic arch is normal in caliber. The origin of the neck vessels are patent. The right common carotid artery is patent. The right internal carotid artery is patent. The right external carotid artery is patent. The left common carotid artery is patent. The left internal carotid artery is patent. The left external carotid artery is patent. The vertebral arteries are patent. No cystic or solid masses. Small bilateral cervical chain lymph nodes, likely reactive. Symmetric appearance of the parotid and submandibular glands. The thyroid gland is normal in size. The lung apices are clear. Cervical spine is intact. Bilateral maxillary and ethmoid sinusitis changes. IMPRESSION: Right carotid system: No significant carotid stenosis Left carotid system: No significant carotid stenosis Patent vertebral arteries. CT head/brain wo con Stat FINDINGS: The bony calvarium is intact. There is no hydrocephalus, midline shift, or extra-axial fluid collections. There is no mass effect, hemorrhage, or edema. No significant white matter abnormalities. IMPRESSION: No acute intracranial pathology. Hospital Course (1) Stroke-like symptoms: 30-year-old male with past medical history significant for hypertension, diabetes, depression, morbid obesity, obstructive sleep apnea presents for strokelike symptoms. Around 5:30 PM today patient noticed slurred speech and also weakness in the right side and EMS was called. Symptoms lasted about 1 hour. Patient was stroke alert. Currently patient is mostly back to normal. Patient says he had similar kind of symptoms 4 years ago and at that time workup was negative and was told it was stress related. Patient is having ongoing stress for last 1 month. Currently denies any headache. Earlier had blurred vision. Currently vision is okay. No earaches currently. No runny nose or sore throat. No cough. No difficulty swallowing. Denies any chest pain or shortness of breath. No nausea. No abdominal pain. Normal bowel and bladder movements. Resting comfortably and hemodynamics are okay currently. Strokelike symptoms Transient dysarthria and right sided weakness CT head, CTA head and neck unremarkable MRI brain - negative for stroke Echo obtained - LV syst. function normal, LV EF 55-60%, no significant valv. abnormality, Bubble study no obvious evidence of [id number] shunt. Current HbA1c 5.8% lipid profile LDL 81, TG 325 Neurochecks PT OT Telemetry Neurology consult for further recommendations - add plavix for 21 days, then cont. monotherapy, add statin. Zio monitor on DC. Hypercoagulable work-up - blood work obtained - results pending Continue home aspirin Hypertension Continue home lisinopril hydrochlorothiazide Will monitor Diabetes Hold home medications Sliding scale Will monitor Depression On Zoloft Morbid obesity Counseling Obstructive sleep apnea CPAP nightly Total Time Total Time Spent Total Time Spent (In Minutes): 40 Discharge Plan Discharge Items Patient Disposition: Home - Self-Care Reason For Visit: STROKE LIKE SYMPTOMS Discharge Diagnosis: Stroke-like symptoms Condition on Discharge: Fair Activity: Per Instructions section Non-emergency contact: Primary Care Provider and Neurologist Call non-emergency contact if: you have any medication questions and your symptoms worsen Follow-up/Referrals: PCP,NO [Primary Care Provider] - Diet: Carb Consistent or DM2 and Heart Healthy Addtl Attending Provider Instructions: Follow up with primary care physician and neurologist. You should be seen by primary care physician within 1 week. Continue taking aspirin, in addition, take plavix for 3 weeks. Start taking atorvastatin. Hypercoagulable work-up is pending, review results when available with your primary care physician. Pending Studies at Discharge: Yes Studies:: Hypercoagulable work-up Stand-Alone Forms: [facility], Smoking Cessation Medications and DC Order Prescriptions: New clopidogrel 75 mg Tablet 75 mg PO QAM Qty: 20 0RF atorvastatin 40 mg Tablet 40 mg PO QAM Qty: 30 0RF Continued lisinopril 20 mg tablet 20 mg PO DAILY hydrochlorothiazide 25 mg tablet 25 mg PO DAILY metformin 500 mg tablet extended release 24 hr 1,000 mg PO HS sertraline 50 mg tablet 75 mg PO DAILY Zepbound 5 mg/0.5 mL pen injector 5 mg SUBCUT WK aspirin 81 mg PO DAILY cholecalciferol (vitamin D3) 1 tab PO DAILY melatonin 5 mg PO DAILY vitamin B complex 1 tab PO DAILY Discharge Orders: Discharge Order (Routine); Ordered 09/30/25 Ordered By: Forrest Saucedo Admission Data Admit Date/Time: 09/29/25 21:20 Attending Provider: Forrest Saucedo Admit Provider: Bora Robertson Primary Care Provider: PCP,NO Other Providers: Bora Robertson; Kristin Yeung; Lake Carrasco; Kristin Min; Edmundo Rodriguez; Isaías Alexandre; Addi Baxter; Chris Lai; Elodia Butler; Brant Joshi; Javon Verduzco; Son Dixon; Constantin Eid; Pascale Rdz; Chris Sheppard; Aubrie Peacock; Maryse Catalan; Lance Kwan
[2025-09-30] MEDS: CLOPIDOGREL BISULFATE 75 MG TAB PO SCH (16:12)
[2025-09-30] MEDS: STROKE PATIENT DISCHARGE STA (16:17)
[2025-09-30] MEDS ORDERED: MELATONIN 3 MG TAB PO SCH (21:00)
[2025-10-01] MEDS ORDERED: ATORVASTATIN 40 MG TAB PO SCH (09:00)
--- NOTE | 2025-10-02 13:58 | Pharmacy Report ---
Pharmacist Stroke Counseling - Date of Service October 02, 2025 - Scope: Pharmacy has been consulted to provide medication discharge counseling for this patient admitted with [ischemic stroke] [hemorrhagic stroke] [transient ischemic attack] as per the Pharmacist Discharge Counseling for Stroke Patients [facility]. - Medications on Discharge: Home Medications Medication Instructions Recorded Confirmed aspirin 81 mg PO DAILY 09/29/25 09/29/25 cholecalciferol (vitamin D3) 1 tab PO DAILY 09/29/25 09/29/25 hydrochlorothiazide 25 mg tablet 25 mg PO DAILY 09/29/25 09/29/25 lisinopril 20 mg tablet 20 mg PO DAILY 09/29/25 09/29/25 melatonin 5 mg PO DAILY 09/29/25 09/29/25 metformin 500 mg tablet,extended 1,000 mg PO HS 09/29/25 09/29/25 release 24 hr sertraline 50 mg tablet 75 mg PO DAILY 09/29/25 09/29/25 tirzepatide (weight loss) 5 mg/0.5 5 mg subcut WK 09/29/25 09/29/25 mL subcutaneous pen injector (Zepbound) vitamin B complex 1 tab PO DAILY 09/29/25 09/29/25 New Rx's Medication Instructions Recorded atorvastatin 40 mg tablet 40 mg PO QAM #30 tabs 09/30/25 clopidogrel 75 mg tablet 75 mg PO QAM #20 tabs 09/30/25 - Action: The above medications, specifically ones for stroke treatment/prophylaxis, have been reviewed in detail with the patient and/or patient bilingual call center representative(s) prior to discharge. This includes indication, common adverse reactions, drug interactions, and medication administration. Medication counseling has been employed using the teach-back method to ensure understanding. - Outcome: The patient and/or patient bilingual call center representative(s) have demonstrated understanding of the medications. Additional comments: Discussed medications with patient on discharge. He reports he has not yet picked up new medications from pharmacy. Discussed the importance of getting filled soon and the importance of not missing doses. He reports he is going today to get medications filled at pharmacy. No other questions/concerns from patient. Thank you for allowing pharmacy to be involved in the care of this patient. Please call [phone] with any additional questions
[2025-10-05 21:48] LABS: Factor 5 Mutation NEGATIVE
== END 2025-09-30 18:29 | disposition home or self-care (01) | DRG 57 ==
LOC: ED 19:11 → INTOOBSV 21:20 → 4W 21:20